=== PATIENT | female | born 1970 | race American Indian/Alaskan Native ===

== ENCOUNTER 2020-07-07 09:11 | Outpatient (CLI) | payer OTHER ==
--- NOTE | 2020-07-07 11:24 | XRay Report ---
XR spine cervical 2-3V HISTORY: NECK PAIN COMPARISON: None. TECHNIQUE: 3 view(s) of the cervical spine obtained. FINDINGS: Vertebrae: Straightening of the cervical spine. Vertebral body heights are preserved. C1 and C2 are c ongruent. Odontoid process is intact. Spondylosis:Mild spondylotic changes at C5-C6. Soft tissues: No prevertebral soft tissue thickening. IMPRESSION: 1. No significant abnormality of the cervical spine. Signer Name: David Morel MD Signed: 07/07/2020 11:20 AM Workstation Name: [id number]
== END 2020-07-07 09:12 | disposition home or self-care (01) ==
LOC: XRAY 09:11
PROVIDERS: ATTEND Internal Medicine
DX: M47.812 Spondylosis without myelopathy or radiculopathy, cervical region (principal)
CPT/HCPCS: 72040